=== PATIENT | female | born 1980 | race Two or more races ===

== ENCOUNTER 2019-08-13 08:55 | Outpatient (CLI) | payer OTHER | END 2019-08-13 09:02 | disposition home or self-care (01) | LOC: SONOGRAMA 08:55 | DX: Z34.81 Encounter for supervision of other normal pregnancy, first trimester (principal) ==

== ENCOUNTER → 2019-11-18 | Outpatient (CLI) | payer OTHER | END | disposition home or self-care (01) | LOC: PRENATAL 08:00 | PROVIDERS: ATTEND Obstetrics & Gynecology Maternal & Fetal Medicine | DX: O34.41 Maternal care for other abnormalities of cervix, first trimester (principal); O35.0XX1 Maternal care for (suspected) central nervous system malformation in fetus, fetus 1; O35.3XX1 Maternal care for (suspected) damage to fetus from viral disease in mother, fetus 1; O98.512 Other viral diseases complicating pregnancy, second trimester; Z3A.23 23 weeks gestation of pregnancy ==